=== PATIENT | male | born 1935 | race Caucasian/White ===

== ENCOUNTER 2017-08-29 08:28 | Emergency (ER) | payer OTHER ==
[~2017-08-29] VITALS: Ht 160 cm; Wt 65.8 kg
[~2017-08-29 08:28] MED LIST: ALBUTEROL SULFAT4 M1 PO; CARDIZEM CD360 MG PO; COZAAR100 MG PO; FLOVENT HFA12 G1 IH; FOSAMAX70 MG PO; METFORMIN HCL500 MG PO; [UNRECOGNIZED DRUG - OTHER]
[2017-08-29] MEDS ORDERED: ASA-EC81 MG PO (09:03)
[2017-08-29] MEDS ORDERED: METFORMIN HCL1000 MG PO (09:04)
[2017-08-29] MEDS ORDERED: VASOTEC2.5 MG PO (09:04)
[2017-08-29] MEDS ORDERED: NEURONTIN800 MG PO (09:05)
[2017-08-29] MEDS ORDERED: ALENDRONATE SOD70 MG PO (09:05)
[2017-08-29] MEDS ORDERED: CARDIZEM30 MG PO (09:07)
== END 2017-08-29 14:36 | disposition home or self-care (01) ==
LOC: ER 08:28
DX: J44.1 Chronic obstructive pulmonary disease with (acute) exacerbation (principal); J11.1 Influenza due to unidentified influenza virus with other respiratory manifestations

== ENCOUNTER 2017-10-29 12:06 | Outpatient (CLI) | payer OTHER | END 2017-10-29 12:15 | disposition home or self-care (01) | LOC: RAD 12:06 | DX: N13.2 Hydronephrosis with renal and ureteral calculous obstruction (principal); M54.5 Low back pain ==